=== PATIENT | male | born 1960 | race African-American/Black ===

== ENCOUNTER 2017-08-23 16:52 | Emergency (ER) | payer SELFPAY ==
[~2017-08-23] VITALS: Ht 182.9 cm; Wt 89.8 kg
[2017-08-23 17:00] VITALS: BP 145/72
--- NOTE | 2017-08-23 17:13 | NUR ---
PT AMBULATED TO [facility].
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
[2017-08-23] MEDS ORDERED: KETOROLAC 60 MG/2 ML VIAL IM ONE (17:30)
[2017-08-23 18:15] VITALS: BP 145/72
== END 2017-08-23 18:15 | disposition home or self-care (01) ==
LOC: MED 16:52
DX: S16.1XXA Strain of muscle, fascia and tendon at neck level, initial encounter (principal); E11.9 Type 2 diabetes mellitus without complications; V49.9XXA Car occupant (driver) (passenger) injured in unspecified traffic accident, initial encounter; Y93.89 Activity, other specified; Y92.89 Other specified places as the place of occurrence of the external cause; Y99.8 Other external cause status
CPT/HCPCS: 72040; 96372; 99284; J1885

== ENCOUNTER 2018-08-14 12:09 | Emergency (ER) | payer OTHER ==
[~2018-08-14] VITALS: Ht 180.3 cm; Wt 89.0 kg
[2018-08-14 12:16] VITALS: BP 161/66
--- NOTE | 2018-08-14 12:16 | NUR ---
PATIENT AMBULATED TO BED 4 AT THIS TIME.
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
--- NOTE | 2018-08-14 12:35 | NUR ---
Patient being evaluated by physician at bedside.
[2018-08-14 12:50] VITALS: BP 174/96
--- NOTE | 2018-08-14 12:50 | NUR ---
Patient discharged with v/s stable. Written and verbal after care instructions given and explained. Rx of NORCO given. Patient educated on indication of medication including possible reaction and side effects. ID band removed. Patient advised to follow up with PMD.
== END 2018-08-14 12:50 | disposition home or self-care (01) ==
LOC: MED 12:09
DX: S16.1XXA Strain of muscle, fascia and tendon at neck level, initial encounter (principal); S29.012A Strain of muscle and tendon of back wall of thorax, initial encounter; R03.0 Elevated blood-pressure reading, without diagnosis of hypertension; E11.9 Type 2 diabetes mellitus without complications; V89.2XXA Person injured in unspecified motor-vehicle accident, traffic, initial encounter; Y93.89 Activity, other specified; Y92.89 Other specified places as the place of occurrence of the external cause; Y99.8 Other external cause status
CPT/HCPCS: 82948; 99283

== ENCOUNTER 2019-02-21 06:58 | Emergency (ER) | payer OTHER ==
[~2019-02-21] VITALS: Ht 182.9 cm; Wt 90.7 kg
[2019-02-21 07:05] VITALS: BP 141/77
--- NOTE | 2019-02-21 07:05 | NUR ---
TO BED # 11 AMBULATORY
--- NOTE | 2019-02-21 07:13 | NUR ---
PT PRESENTS TO THE ED WITH C/O ITCHING OF UPPER BACK X 2 WEEKS. PT DENIES PAIN AT THIS TIME. PT STATES THAT HE HAS BEEN USING CORTISONE CREAM AND AQUAPHOR BUT IT STOPED PROVIDING RELIEF 5 DAYS AGO. PT DENIES A CHANGE IN LAUNDRY SOAP OR BODY WASH. SKIN ON UPPER BACK IS DRY, NO RASH NOTED. PT POSITIONED FOR COMFORT. ER MD TO SEE PT. JONNA HX: DM RX: INSULIN, GLIPIZIDE
--- NOTE | 2019-02-21 07:18 | NUR ---
CATRINA WHITTINGTON AT BEDSIDE.
[2019-02-21 07:33] VITALS: BP 141/77
--- NOTE | 2019-02-21 07:33 | NUR ---
Patient discharged with v/s stable. Written and verbal after care instructions given and explained. Patient alert, oriented and verbalized understanding of instructions. Ambulatory with steady gait. All questions addressed prior to discharge. ID band removed. Patient advised to follow up with PMD. Rx of BENADRYL TOPICAL CREAM given. Patient educated on indication of medication including possible reaction and side effects. Opportunity to ask questions provided and answered.
== END 2019-02-21 07:33 | disposition home or self-care (01) ==
LOC: MED 06:58
DX: L85.3 Xerosis cutis (principal); E11.9 Type 2 diabetes mellitus without complications
CPT/HCPCS: 99282